=== PATIENT | male | born 1940 ===

== ENCOUNTER 2021-05-17 16:08 | Inpatient (IN) | payer MEDICARE ==
[2021-05-17] MEDS ORDERED: LORazepam 1 MG TAB PO PRN (22:11)
[2021-05-18] MEDS ORDERED: [UNRECOGNIZED DRUG - OTHER] PO PRN (10:25)
[2021-05-18] MEDS ORDERED: BUTALB PO PRN (10:25)
[2021-05-18] MEDS ORDERED: ACETAMINOPHEN PO PRN (10:25)
[2021-05-18] MEDS ORDERED: CAFFEINE PO PRN (10:25)
--- NOTE | 2021-05-18 10:26 | Consultation ---
History of Present Illness - Reason for Consult Consult date: 05/18/21 Reason for consult: delusional - History of Present Psychiatric Illness Per Nurse Note: Patient has had increasing headaches and depression and threatened to kill himself by banging his head on the wall. Carrington Recinos was seen today, he is a/o x 3. He has a lot of somatic complaints. He says his right arm is numb and paralized. The patent is moving his arm about. He says his fingers are numb and he's having headaches. He says it all started after taking the wellbutrin. He says he's feeling depressed. He says he he thought about suicide but says he he could get better he would be fine. The patient denies any illicit drug use, alcohol or nicotine. PAST PSYCHIATRIC HISTORY: Diagnoses: Depression Suicide attempts or Self-harm behavior: Denies Prior psychiatric hospitalizations: yes Substance Abuse history: denies Previous psychiatric medications tried: wellbutin Outpatient treatment: yes PAST MEDICAL HISTORY: None reported or document Family Psychiatric History: None reported or documented SOCIAL HISTORY Marital Status: Living Arrangements: with son Employment Status: retired Access to guns/weapons: denies Education: History of Abuse: denies Legal History: denies REVIEW OF SYSTEMS Constitutional: Negative for weight loss ENT: Negative for stridor Respiratory: Negative for cough or hemoptysis All other systems reviewed and are negative MENTAL STATUS EXAMINATION General Appearance and Behavior: Age appropriate, good hygiene, wearing appropriate clothes, calm and cooperative polite with questioning. Cooperation: engaged Psychomotor Behavior: Psychomotor normal Mood: depressed Affect and affective range: congruent with stated mood Thought Process: goal directed Thought Content: depression, SI Speech: Normal volume, Regular rate and rhythm, Suicidal Ideation: yes Homicidal Ideation: Denies Hallucinations: Denies Delusions: None elicited Impulse Control: Unimpaired Insight and Judgment: Limited Memory: Limited Attention: attentive Orientation: a/o Assessment and Plan (1)Major Depressive Disorder Treatment Plan Patient admitted for inpatient psychiatric evaluation, medication adjustment and close monitoring The patient's behavior, mood, sleep and appetite will be closely monitored. Patient enrolled in individual and group therapeutic sessions and encouraged to attend. Patient provided with a safe and structured environment. Patient's physical health needs will be addressed by the Hospitalist. Hospitalist Consulted Labs including CBC, CMP, Lipid profile and Hemoglobin A1C levels ordered for baseline reference Social Assessment will be completed and the Weaving Supervisor will work with patient and family to ensure a suitable and safe disposition Medication adjustment will be made as clinically indicated Effexor 37.5mg po daily Abilify 5mg po daily Usual Wellness Denominational/Preservation: - Start Trazodone 50 mg po QHS & 50 mg po QHS PRN between 10 PM & 2 AM for insomnia - Start Melatonin 5 mg po QHS to promote circadian rhythm The patient agreed on the treatment plan, understood the risk, benefit, alternative treatment, potential consequence of no treatment, and gave informed consent. Estimated days: 6 Post hospital care: primary care provider, psychiatric provider Case staffed with Dr. Dalton Medications and Allergies Allergies Allergy/AdvReac Type Severity Reaction Status Date / Time No Known Allergies Allergy Verified 05/18/21 01:51 Home Medications Medication Instructions Recorded Confirmed Last Taken Type Butalb/Acetaminophen/Caffeine 1 cap PO Q6HR PRN 05/18/21 05/18/21 Unknown History [Fioricet 50-300-40 mg CAP] Finasteride [Proscar] 5 mg PO DAILY 05/18/21 05/18/21 Unknown History LORazepam [Ativan] 1 mg PO DAILY PRN 05/18/21 05/18/21 Unknown History buPROPion [Wellbutrin] 75 mg PO DAILY 05/18/21 05/18/21 Unknown History Active Meds: Active Medications Lorazepam (Lorazepam 1 Mg Tab) 1 mg PO Q4H PRN PRN Reason: Agitation Melatonin (Melatonin 5 Mg Tab) 5 mg PO QHS PRN PRN Reason: Sleep Mental Status Exam - Vital signs Last Vital Signs Temp 98.1 F 05/18/21 07:48 Pulse 81 05/18/21 07:48 Resp 16 05/18/21 07:48 BP 126/72 05/18/21 07:48 Pulse Ox 98 05/18/21 07:48 Results All other labs normal.
[2021-05-18] MEDS: VENLAFAXINE 37.5 MG TAB PO SCH ×2 (12:33→21:17)
[2021-05-18] MEDS: FINASTERIDE 5 MG TAB PO SCH (12:33)
[2021-05-18] MEDS: BUTALB/ACETAMINOPHEN/CAFFEINE TAB PO PRN (12:34)
[2021-05-18] MEDS: ARIPiprazole 5 MG TAB PO SCH (12:34)
[2021-05-18 12:46] LABS: Basophils # (Auto) 0.1 K/mm3 (0.0-0.1); Basophils % (Auto) 0.6 % (0.0-1.8); Eosinophils # (Auto) 0.1 K/mm3 (0.0-0.4); Eosinophils % (Auto) 0.8 % (0.0-4.3); Hematocrit 42.3 % (35.5-45.6); Hemoglobin 15.1 gm/dl (11.8-15.2); Lymphocytes # (Auto) 0.8 K/mm3 (1.2-5.4); Lymphocytes % (Auto) 9.2 % (13.4-35.0); Mean Corpuscular HGB Conc 36 % (32-34); Mean Corpuscular Volume 99 fl (84-94); Monocytes # (Auto) 0.9 K/mm3 (0.0-0.8); Platelet Count 277 K/mm3 (140-440); Red Blood Count 4.26 M/mm3 (3.65-5.03); Red Cell Distribution Width 14.3 % (13.2-15.2)
[2021-05-18 13:13] LABS: Albumin 4.4 g/dL (3.9-5); Calcium 9.9 mg/dL (8.4-10.2); Chol/HDL Ratio 2.58 %
--- NOTE | 2021-05-18 20:15 | Consultation ---
History of Present Illness - Reason for Consult Consult date: 05/18/21 Medical Management Requesting physician: OK CASTILLO - History of Present Illness 80 YO Male with Vascular Dementia With Behavioral Disturbance, Cerebral Atherosclerosis, MDD admitted to [facility] for Psychiatric stabilization. Pt seen and Past History Past Medical History: other (see HPI() Medications and Allergies Allergies Allergy/AdvReac Type Severity Reaction Status Date / Time No Known Allergies Allergy Verified 05/18/21 01:51 Home Medications Medication Instructions Recorded Confirmed Last Taken Type Butalb/Acetaminophen/Caffeine 1 cap PO Q6HR PRN 05/18/21 05/18/21 Unknown History [Fioricet 50-300-40 mg CAP] Finasteride [Proscar] 5 mg PO DAILY 05/18/21 05/18/21 Unknown History LORazepam [Ativan] 1 mg PO DAILY PRN 05/18/21 05/18/21 Unknown History buPROPion [Wellbutrin] 75 mg PO DAILY 05/18/21 05/18/21 Unknown History Active Meds: Active Medications Acetaminophen/Butalbital/Caffeine (Butalb/Acetaminophen/Caffeine Tab) 1 tab PO Q6H PRN PRN Reason: Headache Last Admin: 05/18/21 12:34 Dose: 1 tab Documented by: Aripiprazole (Aripiprazole 5 Mg Tab) 5 mg PO QDAY [facility] Last Admin: 05/18/21 12:34 Dose: 5 mg Documented by: Finasteride (Finasteride 5 Mg Tab) 5 mg PO DAILY [facility] Last Admin: 05/18/21 12:33 Dose: 5 mg Documented by: Lorazepam (Lorazepam 1 Mg Tab) 1 mg PO Q4H PRN PRN Reason: Agitation Lorazepam (Lorazepam 1 Mg Tab) 1 mg PO DAILY PRN PRN Reason: Anxiety Melatonin (Melatonin 5 Mg Tab) 5 mg PO QHS PRN PRN Reason: Sleep Venlafaxine HCl (Venlafaxine 37.5 Mg Tab) 37.5 mg PO BID [facility] Last Admin: 05/18/21 12:33 Dose: 37.5 mg Documented by: Exam - Constitutional Vitals: Temp Pulse Resp BP Pulse Ox 98.6 F 66 20 133/67 96 05/18/21 19:22 05/18/21 19:22 05/18/21 19:22 05/18/21 19:22 05/18/21 19:22 General appearance: Present: cachectic - EENT Eyes: Present: PERRL ENT: hearing intact, clear oral mucosa - Neck Neck: Present: supple, normal ROM - Respiratory Respiratory effort: normal Respiratory: bilateral: CTA - Cardiovascular Heart Sounds: Present: S1 & S2. Absent: rub, click - Extremities Extremities: pulses symmetrical, No edema Peripheral Pulses: within normal limits - Abdominal General gastrointestinal: Present: soft, non-tender, non-distended, normal bowel sounds Male genitourinary: Present: normal - Integumentary Integumentary: Present: clear, warm, dry - Musculoskeletal Musculoskeletal: gait normal, strength equal bilaterally - Psychiatric Psychiatric: appropriate mood/affect, intact judgment & insight - Neurologic Neurologic: CNII-XII intact, moves all extremities Results - Labs CBC & Chem 7: 05/18/21 12:31 05/18/21 12:31 Labs: Abnormal lab results 05/18/21 05/18/21 Range/Units 12:31 12:31 MCV 99 H (84-94) fl MCH 35 H (28-32) pg MCHC 36 H (32-34) % Lymph % (Auto) 9.2 L (13.4-35.0) % [place] % (Auto) 10.0 H (0.0-7.3) % Lymph # (Auto) 0.8 L (1.2-5.4) K/mm3 [place] # (Auto) 0.9 H (0.0-0.8) K/mm3 Seg Neutrophils % 79.4 H (40.0-70.0) % Sodium 135 L (137-145) mmol/L BUN 21 H (9-20) mg/dL Assessment and Plan - Patient Problems (1) Vascular dementia with behavioral disturbance Current Visit: Yes Status: Acute (2) Cerebral atherosclerosis Current Visit: Yes Status: Acute (3) Depression Current Visit: Yes Status: Acute
[2021-05-19] MEDS: VENLAFAXINE 37.5 MG TAB PO SCH ×2 (10:07→21:21)
[2021-05-19] MEDS: FINASTERIDE 5 MG TAB PO SCH (10:07)
[2021-05-19] MEDS: ARIPiprazole 5 MG TAB PO SCH (10:07)
[2021-05-19] MEDS: BUTALB/ACETAMINOPHEN/CAFFEINE TAB PO PRN (10:08)
--- NOTE | 2021-05-19 10:33 | Progress Note ---
Subjective Date of service: 05/19/21 Principal diagnosis: MDD Subjective Comment: The patient was seen today, he has a lot of somatic complaints, some appear to be delusions. He says his arm is paralyzed and he can't move it. But the patient is moving his arm about. He says his arm is numb and tingling. He says he's dizzy, has a headache and hallucinating. When I ask the patient what where the hallucinations, he says "I'm seeing everything." He also endorses suicidal thoughts "at times." The patient says he is sensitive to medications and started having all of these symptoms after being placed on the wellbutrin. I informed the patient that he was no longer on the wellbutrin. REVIEW OF SYSTEMS Constitutional: Negative for weight loss ENT: Negative for stridor Respiratory: Negative for cough or hemoptysis All other systems reviewed and are negative MENTAL STATUS EXAMINATION General Appearance and Behavior: Age appropriate, good hygiene, wearing appropriate clothes, calm and cooperative polite with questioning. Cooperation: engaged Psychomotor Behavior: Psychomotor normal Mood: depressed Affect and affective range: congruent with stated mood Thought Process: goal directed Thought Content: depression, SI Speech: Normal volume, Regular rate and rhythm, Suicidal Ideation: yes Homicidal Ideation: Denies Hallucinations: Denies Delusions: None elicited Impulse Control: Unimpaired Insight and Judgment: Limited Memory: Limited Attention: attentive Orientation: a/o Assessment and Plan (1)Major Depressive Disorder Treatment Plan Patient admitted for inpatient psychiatric evaluation, medication adjustment and close monitoring The patient's behavior, mood, sleep and appetite will be closely monitored. Patient enrolled in individual and group therapeutic sessions and encouraged to attend. Patient provided with a safe and structured environment. Patient's physical health needs will be addressed by the Hospitalist. Hospitalist Consulted Labs including CBC, CMP, Lipid profile and Hemoglobin A1C levels ordered for baseline reference Social Assessment will be completed and the Printed Circuit Board Layout Designer will work with patient and family to ensure a suitable and safe disposition Medication adjustment will be made as clinically indicated Continue Effexor 37.5mg po daily Continue Abilify 5mg po daily Usual Wellness Tenriism/Preservation: - Start Trazodone 50 mg po QHS & 50 mg po QHS PRN between 10 PM & 2 AM for insomnia - Start Melatonin 5 mg po QHS to promote circadian rhythm The patient agreed on the treatment plan, understood the risk, benefit, alternative treatment, potential consequence of no treatment, and gave informed consent. Estimated days: 3 Post hospital care: primary care provider, psychiatric provider Case staffed with Dr. Dalton Medications and Allergies Allergies Allergy/AdvReac Type Severity Reaction Status Date / Time No Known Allergies Allergy Verified 05/18/21 01:51 Home Medications Medication Instructions Recorded Confirmed Last Taken Type Butalb/Acetaminophen/Caffeine 1 cap PO Q6HR PRN 05/18/21 05/18/21 Unknown History [Fioricet 50-300-40 mg CAP] Finasteride [Proscar] 5 mg PO DAILY 05/18/21 05/18/21 Unknown History LORazepam [Ativan] 1 mg PO DAILY PRN 05/18/21 05/18/21 Unknown History buPROPion [Wellbutrin] 75 mg PO DAILY 05/18/21 05/18/21 Unknown History Active Meds: Active Medications Acetaminophen/Butalbital/Caffeine (Butalb/Acetaminophen/Caffeine Tab) 1 tab PO Q6H PRN PRN Reason: Headache Last Admin: 05/19/21 10:08 Dose: 1 tab Documented by: Aripiprazole (Aripiprazole 5 Mg Tab) 5 mg PO QDAY [facility] Last Admin: 05/19/21 10:07 Dose: 5 mg Documented by: Finasteride (Finasteride 5 Mg Tab) 5 mg PO DAILY [facility] Last Admin: 05/19/21 10:07 Dose: 5 mg Documented by: Lorazepam (Lorazepam 1 Mg Tab) 1 mg PO DAILY PRN PRN Reason: Anxiety Melatonin (Melatonin 5 Mg Tab) 5 mg PO QHS PRN PRN Reason: Sleep Venlafaxine HCl (Venlafaxine 37.5 Mg Tab) 37.5 mg PO BID [facility] Last Admin: 05/19/21 10:07 Dose: 37.5 mg Documented by: Results - Results Labs/Vitals: Laboratory Last Values WBC 8.8 K/mm3 (4.5-11.0) 05/18/21 12:31 RBC 4.26 M/mm3 (3.65-5.03) 05/18/21 12:31 Hgb 15.1 gm/dl (11.8-15.2) 05/18/21 12:31 Hct 42.3 % (35.5-45.6) 05/18/21 12:31 MCV 99 fl (84-94) H 05/18/21 12:31 MCH 35 pg (28-32) H 05/18/21 12:31 MCHC 36 % (32-34) H 05/18/21 12:31 RDW 14.3 % (13.2-15.2) 05/18/21 12:31 Plt Count 277 K/mm3 (140-440) 05/18/21 12:31 Lymph % (Auto) 9.2 % (13.4-35.0) L 05/18/21 12:31 [place] % (Auto) 10.0 % (0.0-7.3) H 05/18/21 12:31 Eos % (Auto) 0.8 % (0.0-4.3) 05/18/21 12:31 Baso % (Auto) 0.6 % (0.0-1.8) 05/18/21 12:31 Lymph # (Auto) 0.8 K/mm3 (1.2-5.4) L 05/18/21 12:31 [place] # (Auto) 0.9 K/mm3 (0.0-0.8) H 05/18/21 12:31 Eos # (Auto) 0.1 K/mm3 (0.0-0.4) 05/18/21 12:31 Baso # (Auto) 0.1 K/mm3 (0.0-0.1) 05/18/21 12:31 Seg Neutrophils % 79.4 % (40.0-70.0) H 05/18/21 12:31 Seg Neutrophils # 7.0 K/mm3 (1.8-7.7) 05/18/21 12:31 Sodium 135 mmol/L (137-145) L 05/18/21 12:31 Potassium 4.1 mmol/L (3.6-5.0) 05/18/21 12:31 Chloride 99.6 mmol/L (98-107) 05/18/21 12:31 Carbon Dioxide 22 mmol/L (22-30) 05/18/21 12:31 Anion Gap 18 mmol/L 05/18/21 12:31 BUN 21 mg/dL (9-20) H 05/18/21 12:31 Creatinine 1.2 mg/dL (0.8-1.3) 05/18/21 12:31 Estimated GFR 59 ml/min 05/18/21 12:31 BUN/Creatinine Ratio 18 % 05/18/21 12:31 Glucose 80 mg/dL (75-100) 05/18/21 12:31 POC Glucose 95 mg/dL (70-105) 05/18/21 19:53 Hemoglobin A1c 5.4 % (4-6) 05/18/21 12:31 Calcium 9.9 mg/dL (8.4-10.2) 05/18/21 12:31 Total Bilirubin 0.60 mg/dL (0.1-1.2) 05/18/21 12:31 AST 22 units/L (5-40) 05/18/21 12:31 ALT 13 units/L (7-56) 05/18/21 12:31 Alkaline Phosphatase 56 units/L (35-129) 05/18/21 12:31 Total Protein 7.0 g/dL (6.3-8.2) 05/18/21 12:31 Albumin 4.4 g/dL (3.9-5) 05/18/21 12:31 Albumin/Globulin Ratio 1.7 % 05/18/21 12:31 Triglycerides 105 mg/dL (2-149) 05/18/21 12:31 Cholesterol 111 mg/dL (50-199) 05/18/21 12:31 LDL Cholesterol Direct 62 mg/dL (50-130) 05/18/21 12:31 HDL Cholesterol 43 mg/dL (40-59) 05/18/21 12:31 Cholesterol/HDL Ratio 2.58 % 05/18/21 12:31 TSH 1.000 mlU/mL (0.270-4.200) 05/18/21 12:31 Last Vital Signs Temp 97.6 F 05/19/21 07:31 Pulse 71 05/19/21 07:31 Resp 18 05/19/21 07:31 BP 141/66 05/19/21 07:31 Pulse Ox 97 05/19/21 07:31
[2021-05-19] MEDS: LORazepam 1 MG TAB PO PRN (11:51)
[2021-05-19] MEDS: MELATONIN 5 MG TAB PO PRN (20:06)
[2021-05-20] MEDS: BUTALB/ACETAMINOPHEN/CAFFEINE TAB PO PRN ×2 (09:34→15:01)
[2021-05-20] MEDS: ARIPiprazole 5 MG TAB PO SCH (09:34)
[2021-05-20] MEDS: FINASTERIDE 5 MG TAB PO SCH (09:34)
[2021-05-20] MEDS: VENLAFAXINE 37.5 MG TAB PO SCH ×2 (09:34→21:12)
--- NOTE | 2021-05-20 10:32 | Progress Note ---
Subjective Date of service: 05/20/21 Principal diagnosis: MDD Subjective Comment: The patient was seen today, he still has a lot of somatic complaints. He is delusional. He says his right arm is "cold as ice, numb, tingling, paralyzed and he can't move it." The patient's arm is warm to touch, and he has good movement in it. He also says his head is hurting and it is moving down to his right leg. He says "my whole right side is paralyzed." He denies SI/HI or hallucinations of any kind. He says "no, no I need an MRI on my body. Let them know." REVIEW OF SYSTEMS Constitutional: Negative for weight loss ENT: Negative for stridor Respiratory: Negative for cough or hemoptysis All other systems reviewed and are negative MENTAL STATUS EXAMINATION General Appearance and Behavior: Age appropriate, good hygiene, wearing appropriate clothes, calm and cooperative polite with questioning. Cooperation: engaged Psychomotor Behavior: Psychomotor normal Mood: depressed Affect and affective range: congruent with stated mood Thought Process: goal directed Thought Content: depression, SI Speech: Normal volume, Regular rate and rhythm, Suicidal Ideation: yes Homicidal Ideation: Denies Hallucinations: Denies Delusions: None elicited Impulse Control: Unimpaired Insight and Judgment: Limited Memory: Limited Attention: attentive Orientation: a/o Assessment and Plan (1)Major Depressive Disorder Treatment Plan Patient admitted for inpatient psychiatric evaluation, medication adjustment and close monitoring The patient's behavior, mood, sleep and appetite will be closely monitored. Patient enrolled in individual and group therapeutic sessions and encouraged to attend. Patient provided with a safe and structured environment. Patient's physical health needs will be addressed by the Hospitalist. Hospitalist Consulted Labs including CBC, CMP, Lipid profile and Hemoglobin A1C levels ordered for baseline reference Social Assessment will be completed and the Supervisor Wet Room will work with patient and family to ensure a suitable and safe disposition Medication adjustment will be made as clinically indicated Continue Effexor 37.5mg po daily Continue Abilify 5mg po daily Usual Wellness Mandaeism/Preservation: - Start Trazodone 50 mg po QHS & 50 mg po QHS PRN between 10 PM & 2 AM for insomnia - Start Melatonin 5 mg po QHS to promote circadian rhythm The patient agreed on the treatment plan, understood the risk, benefit, alternative treatment, potential consequence of no treatment, and gave informed consent. Estimated days: 3 Post hospital care: primary care provider, psychiatric provider Case staffed with Dr. Dalton Medications and Allergies Allergies Allergy/AdvReac Type Severity Reaction Status Date / Time No Known Allergies Allergy Verified 05/18/21 01:51 Home Medications Medication Instructions Recorded Confirmed Last Taken Type Butalb/Acetaminophen/Caffeine 1 cap PO Q6HR PRN 05/18/21 05/18/21 Unknown History [Fioricet 50-300-40 mg CAP] Finasteride [Proscar] 5 mg PO DAILY 05/18/21 05/18/21 Unknown History LORazepam [Ativan] 1 mg PO DAILY PRN 05/18/21 05/18/21 Unknown History buPROPion [Wellbutrin] 75 mg PO DAILY 05/18/21 05/18/21 Unknown History Active Meds: Active Medications Acetaminophen/Butalbital/Caffeine (Butalb/Acetaminophen/Caffeine Tab) 1 tab PO Q6H PRN PRN Reason: Headache Last Admin: 05/20/21 09:34 Dose: 1 tab Documented by: Aripiprazole (Aripiprazole 5 Mg Tab) 5 mg PO QDAY [facility] Last Admin: 05/20/21 09:34 Dose: 5 mg Documented by: Finasteride (Finasteride 5 Mg Tab) 5 mg PO DAILY [facility] Last Admin: 05/20/21 09:34 Dose: 5 mg Documented by: Lorazepam (Lorazepam 1 Mg Tab) 1 mg PO DAILY PRN PRN Reason: Anxiety Last Admin: 05/19/21 11:51 Dose: 1 mg Documented by: Melatonin (Melatonin 5 Mg Tab) 5 mg PO QHS PRN PRN Reason: Sleep Venlafaxine HCl (Venlafaxine 37.5 Mg Tab) 37.5 mg PO BID [facility] Last Admin: 05/20/21 09:34 Dose: 37.5 mg Documented by: Results - Results Labs/Vitals: Laboratory Last Values WBC 8.8 K/mm3 (4.5-11.0) 05/18/21 12:31 RBC 4.26 M/mm3 (3.65-5.03) 05/18/21 12:31 Hgb 15.1 gm/dl (11.8-15.2) 05/18/21 12:31 Hct 42.3 % (35.5-45.6) 05/18/21 12:31 MCV 99 fl (84-94) H 05/18/21 12:31 MCH 35 pg (28-32) H 05/18/21 12:31 MCHC 36 % (32-34) H 05/18/21 12:31 RDW 14.3 % (13.2-15.2) 05/18/21 12:31 Plt Count 277 K/mm3 (140-440) 05/18/21 12:31 Lymph % (Auto) 9.2 % (13.4-35.0) L 05/18/21 12:31 [place] % (Auto) 10.0 % (0.0-7.3) H 05/18/21 12:31 Eos % (Auto) 0.8 % (0.0-4.3) 05/18/21 12:31 Baso % (Auto) 0.6 % (0.0-1.8) 05/18/21 12:31 Lymph # (Auto) 0.8 K/mm3 (1.2-5.4) L 05/18/21 12:31 [place] # (Auto) 0.9 K/mm3 (0.0-0.8) H 05/18/21 12:31 Eos # (Auto) 0.1 K/mm3 (0.0-0.4) 05/18/21 12:31 Baso # (Auto) 0.1 K/mm3 (0.0-0.1) 05/18/21 12:31 Seg Neutrophils % 79.4 % (40.0-70.0) H 05/18/21 12:31 Seg Neutrophils # 7.0 K/mm3 (1.8-7.7) 05/18/21 12:31 Sodium 135 mmol/L (137-145) L 05/18/21 12:31 Potassium 4.1 mmol/L (3.6-5.0) 05/18/21 12:31 Chloride 99.6 mmol/L (98-107) 05/18/21 12:31 Carbon Dioxide 22 mmol/L (22-30) 05/18/21 12:31 Anion Gap 18 mmol/L 05/18/21 12:31 BUN 21 mg/dL (9-20) H 05/18/21 12:31 Creatinine 1.2 mg/dL (0.8-1.3) 05/18/21 12:31 Estimated GFR 59 ml/min 05/18/21 12:31 BUN/Creatinine Ratio 18 % 05/18/21 12:31 Glucose 80 mg/dL (75-100) 05/18/21 12:31 POC Glucose 95 mg/dL (70-105) 05/18/21 19:53 Hemoglobin A1c 5.4 % (4-6) 05/18/21 12:31 Calcium 9.9 mg/dL (8.4-10.2) 05/18/21 12:31 Total Bilirubin 0.60 mg/dL (0.1-1.2) 05/18/21 12:31 AST 22 units/L (5-40) 05/18/21 12:31 ALT 13 units/L (7-56) 05/18/21 12:31 Alkaline Phosphatase 56 units/L (35-129) 05/18/21 12:31 Total Protein 7.0 g/dL (6.3-8.2) 05/18/21 12:31 Albumin 4.4 g/dL (3.9-5) 05/18/21 12:31 Albumin/Globulin Ratio 1.7 % 05/18/21 12:31 Triglycerides 105 mg/dL (2-149) 05/18/21 12:31 Cholesterol 111 mg/dL (50-199) 05/18/21 12:31 LDL Cholesterol Direct 62 mg/dL (50-130) 05/18/21 12:31 HDL Cholesterol 43 mg/dL (40-59) 05/18/21 12:31 Cholesterol/HDL Ratio 2.58 % 05/18/21 12:31 TSH 1.000 mlU/mL (0.270-4.200) 05/18/21 12:31 Last Vital Signs Temp 98.4 F 05/19/21 19:42 Pulse 68 05/19/21 19:42 Resp 18 05/19/21 19:42 BP 144/74 05/19/21 19:42 Pulse Ox 98 05/19/21 19:42
[2021-05-21] MEDS: ARIPiprazole 5 MG TAB PO SCH (09:25)
[2021-05-21] MEDS: FINASTERIDE 5 MG TAB PO SCH (09:26)
[2021-05-21] MEDS: VENLAFAXINE 37.5 MG TAB PO SCH ×2 (09:26→21:30)
--- NOTE | 2021-05-21 09:39 | Progress Note ---
Subjective Date of service: 05/21/21 Principal diagnosis: MDD Subjective Comment: The patient was seen eating breakfast but states he is not doing well. He reports numbness to his right arm and head aches: vital signs was checked and it is within normal limit. He reports getting about three hours of sleep last night. He denies any current suicidal/homicidal and denies hallucinations. Per nurse " Last evening the patient spent in the activity room with peers. He has little interaction with others. He is focused on somatic issues. He denies si/hi/ah/vh. His appetite is good and he is medication compliant. Overnight the patient rested quietly. He slept 8 hours. Will continue to monitor patient for safety." No changes made today. REVIEW OF SYSTEMS Constitutional: Negative for weight loss ENT: Negative for stridor Respiratory: Negative for cough or hemoptysis All other systems reviewed and are negative MENTAL STATUS EXAMINATION General Appearance and Behavior: Age appropriate, good hygiene, wearing appropriate clothes, calm and cooperative polite with questioning. Cooperation: engaged Psychomotor Behavior: Psychomotor normal Mood: depressed Affect and affective range: congruent with stated mood Thought Process: goal directed Thought Content: depression, SI Speech: Normal volume, Regular rate and rhythm, Suicidal Ideation: yes Homicidal Ideation: Denies Hallucinations: Denies Delusions: None elicited Impulse Control: Unimpaired Insight and Judgment: Limited Memory: Limited Attention: attentive Orientation: a/o Assessment and Plan (1)Major Depressive Disorder Treatment Plan Patient admitted for inpatient psychiatric evaluation, medication adjustment and close monitoring The patient's behavior, mood, sleep and appetite will be closely monitored. Patient enrolled in individual and group therapeutic sessions and encouraged to attend. Patient provided with a safe and structured environment. Patient's physical health needs will be addressed by the Hospitalist. Hospitalist Consulted Labs including CBC, CMP, Lipid profile and Hemoglobin A1C levels ordered for baseline reference Social Assessment will be completed and the Merchandising Director will work with patient and family to ensure a suitable and safe disposition Medication adjustment will be made as clinically indicated Continue Effexor 37.5mg po daily Continue Abilify 5mg po daily Usual Wellness Anabaptism/Preservation: - Start Trazodone 50 mg po QHS & 50 mg po QHS PRN between 10 PM & 2 AM for insomnia - Start Melatonin 5 mg po QHS to promote circadian rhythm The patient agreed on the treatment plan, understood the risk, benefit, alternative treatment, potential consequence of no treatment, and gave informed consent. Estimated days: 3 Post hospital care: primary care provider, psychiatric provider Case staffed with Dr. Dalton Medications and Allergies Allergies Allergy/AdvReac Type Severity Reaction Status Date / Time No Known Allergies Allergy Verified 05/18/21 01:51 Medications and Allergies Allergies Allergy/AdvReac Type Severity Reaction Status Date / Time No Known Allergies Allergy Verified 05/18/21 01:51 Home Medications Medication Instructions Recorded Confirmed Last Taken Type Butalb/Acetaminophen/Caffeine 1 cap PO Q6HR PRN 05/18/21 05/18/21 Unknown History [Fioricet 50-300-40 mg CAP] Finasteride [Proscar] 5 mg PO DAILY 05/18/21 05/18/21 Unknown History LORazepam [Ativan] 1 mg PO DAILY PRN 05/18/21 05/18/21 Unknown History buPROPion [Wellbutrin] 75 mg PO DAILY 05/18/21 05/18/21 Unknown History Active Meds: Active Medications Acetaminophen/Butalbital/Caffeine (Butalb/Acetaminophen/Caffeine Tab) 1 tab PO Q6H PRN PRN Reason: Headache Last Admin: 05/20/21 15:01 Dose: 1 tab Documented by: Aripiprazole (Aripiprazole 5 Mg Tab) 5 mg PO QDAY [facility] Last Admin: 05/21/21 09:25 Dose: 5 mg Documented by: Finasteride (Finasteride 5 Mg Tab) 5 mg PO DAILY [facility] Last Admin: 05/21/21 09:26 Dose: 5 mg Documented by: Lorazepam (Lorazepam 1 Mg Tab) 1 mg PO DAILY PRN PRN Reason: Anxiety Last Admin: 05/19/21 11:51 Dose: 1 mg Documented by: Melatonin (Melatonin 5 Mg Tab) 5 mg PO QHS PRN PRN Reason: Sleep Venlafaxine HCl (Venlafaxine 37.5 Mg Tab) 37.5 mg PO BID [facility] Last Admin: 05/21/21 09:26 Dose: 37.5 mg Documented by: Results - Results Labs/Vitals: Laboratory Last Values WBC 8.8 K/mm3 (4.5-11.0) 05/18/21 12:31 RBC 4.26 M/mm3 (3.65-5.03) 05/18/21 12:31 Hgb 15.1 gm/dl (11.8-15.2) 05/18/21 12:31 Hct 42.3 % (35.5-45.6) 05/18/21 12:31 MCV 99 fl (84-94) H 05/18/21 12:31 MCH 35 pg (28-32) H 05/18/21 12:31 MCHC 36 % (32-34) H 05/18/21 12:31 RDW 14.3 % (13.2-15.2) 05/18/21 12:31 Plt Count 277 K/mm3 (140-440) 05/18/21 12:31 Lymph % (Auto) 9.2 % (13.4-35.0) L 05/18/21 12:31 [place] % (Auto) 10.0 % (0.0-7.3) H 05/18/21 12:31 Eos % (Auto) 0.8 % (0.0-4.3) 05/18/21 12:31 Baso % (Auto) 0.6 % (0.0-1.8) 05/18/21 12:31 Lymph # (Auto) 0.8 K/mm3 (1.2-5.4) L 05/18/21 12:31 [place] # (Auto) 0.9 K/mm3 (0.0-0.8) H 05/18/21 12:31 Eos # (Auto) 0.1 K/mm3 (0.0-0.4) 05/18/21 12:31 Baso # (Auto) 0.1 K/mm3 (0.0-0.1) 05/18/21 12:31 Seg Neutrophils % 79.4 % (40.0-70.0) H 05/18/21 12:31 Seg Neutrophils # 7.0 K/mm3 (1.8-7.7) 05/18/21 12:31 Sodium 135 mmol/L (137-145) L 05/18/21 12:31 Potassium 4.1 mmol/L (3.6-5.0) 05/18/21 12:31 Chloride 99.6 mmol/L (98-107) 05/18/21 12:31 Carbon Dioxide 22 mmol/L (22-30) 05/18/21 12:31 Anion Gap 18 mmol/L 05/18/21 12:31 BUN 21 mg/dL (9-20) H 05/18/21 12:31 Creatinine 1.2 mg/dL (0.8-1.3) 05/18/21 12:31 Estimated GFR 59 ml/min 05/18/21 12:31 BUN/Creatinine Ratio 18 % 05/18/21 12:31 Glucose 80 mg/dL (75-100) 05/18/21 12:31 POC Glucose 95 mg/dL (70-105) 05/18/21 19:53 Hemoglobin A1c 5.4 % (4-6) 05/18/21 12:31 Calcium 9.9 mg/dL (8.4-10.2) 05/18/21 12:31 Total Bilirubin 0.60 mg/dL (0.1-1.2) 05/18/21 12:31 AST 22 units/L (5-40) 05/18/21 12:31 ALT 13 units/L (7-56) 05/18/21 12:31 Alkaline Phosphatase 56 units/L (35-129) 05/18/21 12:31 Total Protein 7.0 g/dL (6.3-8.2) 05/18/21 12:31 Albumin 4.4 g/dL (3.9-5) 05/18/21 12:31 Albumin/Globulin Ratio 1.7 % 05/18/21 12:31 Triglycerides 105 mg/dL (2-149) 05/18/21 12:31 Cholesterol 111 mg/dL (50-199) 05/18/21 12:31 LDL Cholesterol Direct 62 mg/dL (50-130) 05/18/21 12:31 HDL Cholesterol 43 mg/dL (40-59) 05/18/21 12:31 Cholesterol/HDL Ratio 2.58 % 05/18/21 12:31 TSH 1.000 mlU/mL (0.270-4.200) 05/18/21 12:31 Last Vital Signs Temp 98.9 F 05/21/21 08:54 Pulse 88 05/21/21 08:54 Resp 19 05/21/21 08:54 BP 126/75 05/21/21 08:54 Pulse Ox 98 05/21/21 08:54
[2021-05-21] MEDS: LORazepam 1 MG TAB PO PRN (09:54)
[2021-05-21] MEDS: MELATONIN 5 MG TAB PO PRN (20:12)
--- NOTE | 2021-05-22 08:52 | Progress Note ---
Subjective Date of service: 05/22/21 Principal diagnosis: MDD Subjective Comment: 05/21/2021: The patient was seen eating breakfast but states he is not doing well. He reports numbness to his right arm and head aches: vital signs was checked and it is within normal limit. He reports getting about three hours of sleep last night. He denies any current suicidal/homicidal and denies hallucinations. Per nurse " Last evening the patient spent in the activity room with peers. He has little interaction with others. He is focused on somatic issues. He denies si/hi/ah/vh. His appetite is good and he is medication compliant. Overnight the patient rested quietly. He slept 8 hours. Will continue to monitor patient for safety." No changes made today. 05/22/2021: The patient was seen in the activity room awaiting breakfast. He continues to have somatic complains. He reports sleep as poor and appetite as good. The patient denies any current suicidal/ homicidal ideation and denies hallucinations. Per nurse "overnight the pt rested quietly, presents as sleeping for approximately 9hrs, no distress noted, will continue to monitor for safety. " No changes made today. REVIEW OF SYSTEMS Constitutional: Negative for weight loss ENT: Negative for stridor Respiratory: Negative for cough or hemoptysis All other systems reviewed and are negative MENTAL STATUS EXAMINATION General Appearance and Behavior: Age appropriate, good hygiene, wearing appropriate clothes, calm and cooperative polite with questioning. Cooperation: engaged Psychomotor Behavior: Psychomotor normal Mood: depressed Affect and affective range: congruent with stated mood Thought Process: goal directed Thought Content: depression, SI Speech: Normal volume, Regular rate and rhythm, Suicidal Ideation: yes Homicidal Ideation: Denies Hallucinations: Denies Delusions: None elicited Impulse Control: Unimpaired Insight and Judgment: Limited Memory: Limited Attention: attentive Orientation: a/o Assessment and Plan (1)Major Depressive Disorder Treatment Plan Patient admitted for inpatient psychiatric evaluation, medication adjustment and close monitoring The patient's behavior, mood, sleep and appetite will be closely monitored. Patient enrolled in individual and group therapeutic sessions and encouraged to attend. Patient provided with a safe and structured environment. Patient's physical health needs will be addressed by the Hospitalist. Hospitalist Consulted Labs including CBC, CMP, Lipid profile and Hemoglobin A1C levels ordered for baseline reference Social Assessment will be completed and the Sandwich Maker will work with patient and family to ensure a suitable and safe disposition Medication adjustment will be made as clinically indicated Continue Effexor 37.5mg po daily Continue Abilify 5mg po daily No changes made today Usual Wellness Jain/Preservation: - Start Trazodone 50 mg po QHS & 50 mg po QHS PRN between 10 PM & 2 AM for insomnia - Start Melatonin 5 mg po QHS to promote circadian rhythm The patient agreed on the treatment plan, understood the risk, benefit, alternative treatment, potential consequence of no treatment, and gave informed consent. Estimated days: 3 Post hospital care: primary care provider, psychiatric provider Case staffed with Dr. Dalton Medications and Allergies Allergies Allergy/AdvReac Type Severity Reaction Status Date / Time No Known Allergies Allergy Verified 05/18/21 01:51 Home Medications Medication Instructions Recorded Confirmed Last Taken Type Butalb/Acetaminophen/Caffeine 1 cap PO Q6HR PRN 05/18/21 05/18/21 Unknown His tory [Fioricet 50-300-40 mg CAP] Finasteride [Proscar] 5 mg PO DAILY 05/18/21 05/18/21 Unknown History LORazepam [Ativan] 1 mg PO DAILY PRN 05/18/21 05/18/21 Unknown History buPROPion [Wellbutrin] 75 mg PO DAILY 05/18/21 05/18/21 Unknown History Active Meds: Active Medications Acetaminophen/Butalbital/Caffeine (Butalb/Acetaminophen/Caffeine Tab) 1 tab PO Q6H PRN PRN Reason: Headache Last Admin: 05/20/21 15:01 Dose: 1 tab Documented by: Aripiprazole (Aripiprazole 5 Mg Tab) 5 mg PO QDAY [facility] Last Admin: 05/21/21 09:25 Dose: 5 mg Documented by: Finasteride (Finasteride 5 Mg Tab) 5 mg PO DAILY [facility] Last Admin: 05/21/21 09:26 Dose: 5 mg Documented by: Lorazepam (Lorazepam 1 Mg Tab) 1 mg PO DAILY PRN PRN Reason: Anxiety Last Admin: 05/21/21 09:54 Dose: 1 mg Documented by: Melatonin (Melatonin 5 Mg Tab) 5 mg PO QHS PRN PRN Reason: Sleep Last Admin: 05/21/21 20:12 Dose: 5 mg Documented by: Venlafaxine HCl (Venlafaxine 37.5 Mg Tab) 37.5 mg PO BID [facility] Last Admin: 05/21/21 21:30 Dose: 37.5 mg Documented by: Results - Results Labs/Vitals: Laboratory Last Values WBC 8.8 K/mm3 (4.5-11.0) 05/18/21 12:31 RBC 4.26 M/mm3 (3.65-5.03) 05/18/21 12:31 Hgb 15.1 gm/dl (11.8-15.2) 05/18/21 12:31 Hct 42.3 % (35.5-45.6) 05/18/21 12:31 MCV 99 fl (84-94) H 05/18/21 12:31 MCH 35 pg (28-32) H 05/18/21 12:31 MCHC 36 % (32-34) H 05/18/21 12:31 RDW 14.3 % (13.2-15.2) 05/18/21 12:31 Plt Count 277 K/mm3 (140-440) 05/18/21 12:31 Lymph % (Auto) 9.2 % (13.4-35.0) L 05/18/21 12:31 [place] % (Auto) 10.0 % (0.0-7.3) H 05/18/21 12:31 Eos % (Auto) 0.8 % (0.0-4.3) 05/18/21 12:31 Baso % (Auto) 0.6 % (0.0-1.8) 05/18/21 12:31 Lymph # (Auto) 0.8 K/mm3 (1.2-5.4) L 05/18/21 12:31 [place] # (Auto) 0.9 K/mm3 (0.0-0.8) H 05/18/21 12:31 Eos # (Auto) 0.1 K/mm3 (0.0-0.4) 05/18/21 12:31 Baso # (Auto) 0.1 K/mm3 (0.0-0.1) 05/18/21 12:31 Seg Neutrophils % 79.4 % (40.0-70.0) H 05/18/21 12:31 Seg Neutrophils # 7.0 K/mm3 (1.8-7.7) 05/18/21 12:31 Sodium 135 mmol/L (137-145) L 05/18/21 12:31 Potassium 4.1 mmol/L (3.6-5.0) 05/18/21 12:31 Chloride 99.6 mmol/L (98-107) 05/18/21 12:31 Carbon Dioxide 22 mmol/L (22-30) 05/18/21 12:31 Anion Gap 18 mmol/L 05/18/21 12:31 BUN 21 mg/dL (9-20) H 05/18/21 12:31 Creatinine 1.2 mg/dL (0.8-1.3) 05/18/21 12:31 Estimated GFR 59 ml/min 05/18/21 12:31 BUN/Creatinine Ratio 18 % 05/18/21 12:31 Glucose 80 mg/dL (75-100) 05/18/21 12:31 POC Glucose 95 mg/dL (70-105) 05/18/21 19:53 Hemoglobin A1c 5.4 % (4-6) 05/18/21 12:31 Calcium 9.9 mg/dL (8.4-10.2) 05/18/21 12:31 Total Bilirubin 0.60 mg/dL (0.1-1.2) 05/18/21 12:31 AST 22 units/L (5-40) 05/18/21 12:31 ALT 13 units/L (7-56) 05/18/21 12:31 Alkaline Phosphatase 56 units/L (35-129) 05/18/21 12:31 Total Protein 7.0 g/dL (6.3-8.2) 05/18/21 12:31 Albumin 4.4 g/dL (3.9-5) 05/18/21 12:31 Albumin/Globulin Ratio 1.7 % 05/18/21 12:31 Triglycerides 105 mg/dL (2-149) 05/18/21 12:31 Cholesterol 111 mg/dL (50-199) 05/18/21 12:31 LDL Cholesterol Direct 62 mg/dL (50-130) 05/18/21 12:31 HDL Cholesterol 43 mg/dL (40-59) 05/18/21 12:31 Cholesterol/HDL Ratio 2.58 % 05/18/21 12:31 TSH 1.000 mlU/mL (0.270-4.200) 05/18/21 12:31 Last Vital Signs Temp 98.6 F 05/21/21 19:24 Pulse 71 05/21/21 19:24 Resp 20 05/21/21 19:24 BP 129/73 05/21/21 19:24 Pulse Ox 97 05/21/21 19:24
[2021-05-22] MEDS: VENLAFAXINE 37.5 MG TAB PO SCH ×2 (09:06→22:01)
[2021-05-22] MEDS: FINASTERIDE 5 MG TAB PO SCH (09:06)
[2021-05-22] MEDS: ARIPiprazole 5 MG TAB PO SCH (09:06)
[2021-05-22] MEDS: LORazepam 1 MG TAB PO PRN (21:56)
--- NOTE | 2021-05-23 08:46 | Progress Note ---
Subjective Date of service: 05/23/21 Principal diagnosis: MDD Subjective Comment: 05/21/2021: The patient was seen eating breakfast but states he is not doing well. He reports numbness to his right arm and head aches: vital signs was checked and it is within normal limit. He reports getting about three hours of sleep last night. He denies any current suicidal/homicidal and denies hallucinations. Per nurse " Last evening the patient spent in the activity room with peers. He has little interaction with others. He is focused on somatic issues. He denies si/hi/ah/vh. His appetite is good and he is medication compliant. Overnight the patient rested quietly. He slept 8 hours. Will continue to monitor patient for safety." No changes made today. 05/22/2021: The patient was seen in the activity room awaiting breakfast. He continues to have somatic complains. He reports sleep as poor and appetite as good. The patient denies any current suicidal/ homicidal ideation and denies hallucinations. Per nurse "overnight the pt rested quietly, presents as sleeping for approximately 9hrs, no distress noted, will continue to monitor for safety. " No changes made today. 05/23/2021: The patient reports feeling better, he his focused on discharge. He reports sleep and appetite as good. The patient denies any current suicidal/ homicidal ideation and denies hallucinations. No changes made today. REVIEW OF SYSTEMS Constitutional: Negative for weight loss ENT: Negative for stridor Respiratory: Negative for cough or hemoptysis All other systems reviewed and are negative MENTAL STATUS EXAMINATION General Appearance and Behavior: Age appropriate, good hygiene, wearing appropriate clothes, calm and cooperative polite with questioning. Cooperation: engaged Psychomotor Behavior: Psychomotor normal Mood: "ok" Affect and affective range: congruent with stated mood Thought Process: goal directed Thought Content: Not SI Speech: Normal volume, Regular rate and rhythm, Suicidal Ideation: Denies Homicidal Ideation: Denies Hallucinations: Denies Delusions: None elicited Impulse Control: Unimpaired Insight and Judgment: Limited Memory: Limited Attention: attentive Orientation: a/o Assessment and Plan (1)Major Depressive Disorder Treatment Plan Patient admitted for inpatient psychiatric evaluation, medication adjustment and close monitoring The patient's behavior, mood, sleep and appetite will be closely monitored. Patient enrolled in individual and group therapeutic sessions and encouraged to attend. Patient provided with a safe and structured environment. Patient's physical health needs will be addressed by the Hospitalist. Hospitalist Consulted Labs including CBC, CMP, Lipid profile and Hemoglobin A1C levels ordered for baseline reference Social Assessment will be completed and the Paper Steamer will work with patient and family to ensure a suitable and safe disposition Medication adjustment will be made as clinically indicated Continue Effexor 37.5mg po daily Continue Abilify 5mg po daily No changes made today Usual Wellness Amish/Preservation: - Start Trazodone 50 mg po QHS & 50 mg po QHS PRN between 10 PM & 2 AM for insomnia - Start Melatonin 5 mg po QHS to promote circadian rhythm The patient agreed on the treatment plan, understood the risk, benefit, alternative treatment, potential consequence of no treatment, and gave informed consent. Estimated days: 2 Post hospital care: primary care provider, psychiatric provider Case staffed with Dr. Dalton Medications and Allergie Medications and Allergies Allergies Allergy/AdvReac Type Severity Reaction Status Date / Time No Known Allergies Allergy Verified 05/18/21 01:51 Home Medications Medication Instructions Recorded Confirmed Last Taken Type Butalb/Acetaminophen/Caffeine 1 cap PO Q6HR PRN 05/18/21 05/18/21 Unknown History [Fioricet 50-300-40 mg CAP] Finasteride [Proscar] 5 mg PO DAILY 05/18/21 05/18/21 Unknown History LORazepam [Ativan] 1 mg PO DAILY PRN 05/18/21 05/18/21 Unknown History buPROPion [Wellbutrin] 75 mg PO DAILY 05/18/21 05/18/21 Unknown History Active Meds: Active Medications Acetaminophen/Butalbital/Caffeine (Butalb/Acetaminophen/Caffeine Tab) 1 tab PO Q6H PRN PRN Reason: Headache Last Admin: 05/20/21 15:01 Dose: 1 tab Documented by: Aripiprazole (Aripiprazole 5 Mg Tab) 5 mg PO QDAY [facility] Last Admin: 05/22/21 09:06 Dose: 5 mg Documented by: Finasteride (Finasteride 5 Mg Tab) 5 mg PO DAILY [facility] Last Admin: 05/22/21 09:06 Dose: 5 mg Documented by: Lorazepam (Lorazepam 1 Mg Tab) 1 mg PO DAILY PRN PRN Reason: Anxiety Last Admin: 05/22/21 21:56 Dose: 1 mg Documented by: Melatonin (Melatonin 5 Mg Tab) 5 mg PO QHS PRN PRN Reason: Sleep Last Admin: 05/21/21 20:12 Dose: 5 mg Documented by: Venlafaxine HCl (Venlafaxine 37.5 Mg Tab) 37.5 mg PO BID [facility] Last Admin: 05/22/21 22:01 Dose: 37.5 mg Documented by: Results - Results Labs/Vitals: Laboratory Last Values WBC 8.8 K/mm3 (4.5-11.0) 05/18/21 12:31 RBC 4.26 M/mm3 (3.65-5.03) 05/18/21 12:31 Hgb 15.1 gm/dl (11.8-15.2) 05/18/21 12:31 Hct 42.3 % (35.5-45.6) 05/18/21 12:31 MCV 99 fl (84-94) H 05/18/21 12:31 MCH 35 pg (28-32) H 05/18/21 12:31 MCHC 36 % (32-34) H 05/18/21 12:31 RDW 14.3 % (13.2-15.2) 05/18/21 12:31 Plt Count 277 K/mm3 (140-440) 05/18/21 12:31 Lymph % (Auto) 9.2 % (13.4-35.0) L 05/18/21 12:31 [place] % (Auto) 10.0 % (0.0-7.3) H 05/18/21 12:31 Eos % (Auto) 0.8 % (0.0-4.3) 05/18/21 12:31 Baso % (Auto) 0.6 % (0.0-1.8) 05/18/21 12:31 Lymph # (Auto) 0.8 K/mm3 (1.2-5.4) L 05/18/21 12:31 [place] # (Auto) 0.9 K/mm3 (0.0-0.8) H 05/18/21 12:31 Eos # (Auto) 0.1 K/mm3 (0.0-0.4) 05/18/21 12:31 Baso # (Auto) 0.1 K/mm3 (0.0-0.1) 05/18/21 12:31 Seg Neutrophils % 79.4 % (40.0-70.0) H 05/18/21 12:31 Seg Neutrophils # 7.0 K/mm3 (1.8-7.7) 05/18/21 12:31 Sodium 135 mmol/L (137-145) L 05/18/21 12:31 Potassium 4.1 mmol/L (3.6-5.0) 05/18/21 12:31 Chloride 99.6 mmol/L (98-107) 05/18/21 12:31 Carbon Dioxide 22 mmol/L (22-30) 05/18/21 12:31 Anion Gap 18 mmol/L 05/18/21 12:31 BUN 21 mg/dL (9-20) H 05/18/21 12:31 Creatinine 1.2 mg/dL (0.8-1.3) 05/18/21 12:31 Estimated GFR 59 ml/min 05/18/21 12:31 BUN/Creatinine Ratio 18 % 05/18/21 12:31 Glucose 80 mg/dL (75-100) 05/18/21 12:31 POC Glucose 95 mg/dL (70-105) 05/18/21 19:53 Hemoglobin A1c 5.4 % (4-6) 05/18/21 12:31 Calcium 9.9 mg/dL (8.4-10.2) 05/18/21 12:31 Total Bilirubin 0.60 mg/dL (0.1-1.2) 05/18/21 12:31 AST 22 units/L (5-40) 05/18/21 12:31 ALT 13 units/L (7-56) 05/18/21 12:31 Alkaline Phosphatase 56 units/L (35-129) 05/18/21 12:31 Total Protein 7.0 g/dL (6.3-8.2) 05/18/21 12:31 Albumin 4.4 g/dL (3.9-5) 05/18/21 12:31 Albumin/Globulin Ratio 1.7 % 05/18/21 12:31 Triglycerides 105 mg/dL (2-149) 05/18/21 12:31 Cholesterol 111 mg/dL (50-199) 05/18/21 12:31 LDL Cholesterol Direct 62 mg/dL (50-130) 05/18/21 12:31 HDL Cholesterol 43 mg/dL (40-59) 05/18/21 12:31 Cholesterol/HDL Ratio 2.58 % 05/18/21 12:31 TSH 1.000 mlU/mL (0.270-4.200) 05/18/21 12:31 Last Vital Signs Temp 98.4 F 05/23/21 07:33 Pulse 77 05/23/21 07:33 Resp 16 05/23/21 07:33 BP 143/80 05/23/21 07:33 Pulse Ox 98 05/23/21 07:33
--- NOTE | 2021-05-23 08:52 | Event Note ---
Date: 05/23/21 Called Tia Hirsch patient 's son at [phone] and undated him on the patient's treatment plan. No concerns at this time.
[2021-05-23] MEDS: VENLAFAXINE 37.5 MG TAB PO SCH ×2 (09:21→21:30)
[2021-05-23] MEDS: FINASTERIDE 5 MG TAB PO SCH (09:22)
[2021-05-23] MEDS: ARIPiprazole 5 MG TAB PO SCH (09:22)
[2021-05-23] MEDS: LORazepam 1 MG TAB PO PRN (21:30)
[2021-05-23] MEDS: BUTALB/ACETAMINOPHEN/CAFFEINE TAB PO PRN (21:32)
--- NOTE | 2021-05-24 08:07 | Discharge Summary ---
<TESS WESTON - Last Filed: 06/18/21 07:21> Providers - Providers Date of Admission: 05/17/21 23:00 Date of discharge: 05/24/21 Attending physician: OK CASTILLO MD 05/17/21 18:26 Consult to Physician [CONS] Routine Comment: Consulting Provider: TABITHA HIGHTOWER Physician Instructions: Reason For Exam: manage medical conditions 05/18/21 12:27 Physical Therapy Evaluation and Treat [CONS] Routine Comment: Reason For Exam: Unsteady gait 05/18/21 12:29 Occupational Therapy Evaluate and Treat [CONS] Routine Comment: Reason For Exam: Difficulty in swallow Primary care physician: WELDER/INSTALLER Hospitalization Reason for admission: Delusional Admitting Diagnosis: F33.9 - MAJOR DEPRESSIVE DISORDER, RECURRENT, UNSPECIFIED Condition: Stable Hospital course: The patient was provided inpatient psychiatric treatment with safe and suppo rtive environment, group/individual therapy, psychiatric medication, medication adjustment, adverse effect monitor, medical evaluation, medical treatment, social service assessment, social support meeting, placement assessment and psycho-education. The patients mood, cognition, behavior, motivation, compliance to treatment and appreciation on family/social support are improved and stabilized. At the time of discharge, the patient had no suicidal ideas, no homicidal ideas, no aggressive thoughts, no endangering behavior and no debilitating adverse effects. The patient agreed on the treatment plan, understood the risk, benefit, alternative treatment, potential consequence of no treatment, and gave informed consent. Progress Note: 05/19/2021: The patient was seen today, he has a lot of somatic complaints, some appear to be delusions. He says his arm is paralyzed and he can't move it. But the patient is moving his arm about. He says his arm is numb and tingling. He says he's dizzy, has a headache and hallucinating. When I ask the patient what where the hallucinations, he says "I'm seeing everything." He also endorses suicidal thoughts "at times." The patient says he is sensitive to medications and started having all of these symptoms after being placed on the wellbutrin. I informed the patient that he was no longer on the wellbutrin. 05/20/2021: The patient was seen today, he still has a lot of somatic complaints. He is delusional. He says his right arm is "cold as ice, numb, tingling, paralyzed and he can't move it." The patient's arm is warm to touch, and he has good movement in it. He also says his head is hurting and it is moving down to his right leg. He says "my whole right side is paralyzed." He denies SI/HI or hallucinations of any kind. He says "no, no I need an MRI on my body. Let them know." 05/21/2021: The patient was seen eating breakfast but states he is not doing well. He reports numbness to his right arm and head aches: vital signs was checked and it is within normal limit. He reports getting about three hours of sleep last night. He denies any current suicidal/homicidal and denies hallucinations. Per nurse " Last evening the patient spent in the activity room with peers. He has little interaction with others. He is focused on somatic issues. He denies si/hi/ah/vh. His appetite is good and he is medication compliant. Overnight the patient rested quietly. He slept 8 hours. Will continue to monitor patient for safety." No changes made today. 05/22/2021: The patient was seen in the activity room awaiting breakfast. He continues to have somatic complains. He reports sleep as poor and appetite as good. The patient denies any current suicidal/ homicidal ideation and denies hallucinations. Per nurse "overnight the pt rested quietly, presents as sleeping for approximately 9hrs, no distress noted, will continue to monitor for safety. " No changes made today. 05/23/2021: The patient reports feeling better, he his focused on discharge. He reports sleep and appetite as good. The patient denies any current suicidal/ homicidal ideation and denies hallucinations. No changes made today. Disposition: 01 HOME / SELF CARE / HOMELESS Allergies/Adverse Reactions: Allergies No Known Allergies Allergy (Verified 05/18/21 01:51) Vital Signs: Last Vital Signs Temp 97.5 F L 05/23/21 19:18 Pulse 71 05/23/21 19:18 Resp 16 05/23/21 19:18 BP 154/79 05/23/21 19:18 Pulse Ox 97 05/23/21 19:18 Last Lab: Laboratory Last Values WBC 8.8 K/mm3 (4.5-11.0) 05/18/21 12:31 RBC 4.26 M/mm3 (3.65-5.03) 05/18/21 12:31 Hgb 15.1 gm/dl (11.8-15.2) 05/18/21 12:31 Hct 42.3 % (35.5-45.6) 05/18/21 12:31 MCV 99 fl (84-94) H 05/18/21 12:31 MCH 35 pg (28-32) H 05/18/21 12:31 MCHC 36 % (32-34) H 05/18/21 12:31 RDW 14.3 % (13.2-15.2) 05/18/21 12:31 Plt Count 277 K/mm3 (140-440) 05/18/21 12:31 Lymph % (Auto) 9.2 % (13.4-35.0) L 05/18/21 12:31 [place] % (Auto) 10.0 % (0.0-7.3) H 05/18/21 12:31 Eos % (Auto) 0.8 % (0.0-4.3) 05/18/21 12:31 Baso % (Auto) 0.6 % (0.0-1.8) 05/18/21 12:31 Lymph # (Auto) 0.8 K/mm3 (1.2-5.4) L 05/18/21 12:31 [place] # (Auto) 0.9 K/mm3 (0.0-0.8) H 05/18/21 12:31 Eos # (Auto) 0.1 K/mm3 (0.0-0.4) 05/18/21 12:31 Baso # (Auto) 0.1 K/mm3 (0.0-0.1) 05/18/21 12:31 Seg Neutrophils % 79.4 % (40.0-70.0) H 05/18/21 12:31 Seg Neutrophils # 7.0 K/mm3 (1.8-7.7) 05/18/21 12:31 Sodium 135 mmol/L (137-145) L 05/18/21 12:31 Potassium 4.1 mmol/L (3.6-5.0) 05/18/21 12:31 Chloride 99.6 mmol/L (98-107) 05/18/21 12:31 Carbon Dioxide 22 mmol/L (22-30) 05/18/21 12:31 Anion Gap 18 mmol/L 05/18/21 12:31 BUN 21 mg/dL (9-20) H 05/18/21 12:31 Creatinine 1.2 mg/dL (0.8-1.3) 05/18/21 12:31 Estimated GFR 59 ml/min 05/18/21 12:31 BUN/Creatinine Ratio 18 % 05/18/21 12:31 Glucose 80 mg/dL (75-100) 05/18/21 12:31 POC Glucose 95 mg/dL (70-105) 05/18/21 19:53 Hemoglobin A1c 5.4 % (4-6) 05/18/21 12:31 Calcium 9.9 mg/dL (8.4-10.2) 05/18/21 12:31 Total Bilirubin 0.60 mg/dL (0.1-1.2) 05/18/21 12:31 AST 22 units/L (5-40) 05/18/21 12:31 ALT 13 units/L (7-56) 05/18/21 12:31 Alkaline Phosphatase 56 units/L (35-129) 05/18/21 12:31 Total Protein 7.0 g/dL (6.3-8.2) 05/18/21 12:31 Albumin 4.4 g/dL (3.9-5) 05/18/21 12:31 Albumin/Globulin Ratio 1.7 % 05/18/21 12:31 Triglycerides 105 mg/dL (2-149) 05/18/21 12:31 Cholesterol 111 mg/dL (50-199) 05/18/21 12:31 LDL Cholesterol Direct 62 mg/dL (50-130) 05/18/21 12:31 HDL Cholesterol 43 mg/dL (40-59) 05/18/21 12:31 Cholesterol/HDL Ratio 2.58 % 05/18/21 12:31 TSH 1.000 mlU/mL (0.270-4.200) 05/18/21 12:31 Core Measure Documentation - Palliative Care Palliative Care/ Comfort Measures: Not Applicable - Core Measures Any of the following diagnoses?: none - VTE Discharge Requirements Has pt received <5 days of overlap therapy or INR<2.0: No (criteria for overlap therapy at discharge: on overlap therapy for less than 5 days or INR<2.0) Anticoagulant overlap therapy prescribed at discharge: No Contraindication No Overlap Therapy order at DC: Not Indicated - Acute [facility] Discharge Requirements Reason for no aspirin on DC: Allergy or sensitivity GUERA/ARB for LVSD if EF <40%: Not Applicable Statin for LDL = or >100 mg/dl on DC: Not Applicable - Heart Failure Discharge Requirements GUERA/ARB for LVSD if EF <40%: No Beta mark at discharge: No - Stroke Discharge Requirements Statin for LDL = or >70 mg/dl on DC: Not Applicable Reason for no statin on DC: Not Indicated Anticoag for atrial fib/atrial flutter: Not Applicable Reason for no anticoag for AF/F on DC: Not Indicated Antithrombotic for ischemic stroke: No Reason for no antithrombotic on DC: Not Indicated Exam - Constitutional Vitals: Temp Pulse Resp BP Pulse Ox 97.5 F L 71 16 154/79 97 05/23/21 19:18 05/23/21 19:18 05/23/21 19:18 05/23/21 19:18 05/23/21 19:18 General appearance: Present: no acute distress - Psychiatric Psychiatric: appropriate mood/affect Plan Activity: advance as tolerated Weight Bearing Status: Weight Bear as Tolerated Diet: regular Durable Medical Equipment Needed Upon Discharge: Wheelchair Care Plan Goals: Maintain good and stable mental health. Plan of Treatment: The patient should be compliant with medications, not to use drugs and not to drink alcohol. The patient understands that if suicidal ideas, homicidal ideas, or any endangering thoughts arise, the patient should immediately seek for emergent assistance including but not limited to crisis hot line and emergency room. Follow up with outpatient Psychiatrist and PCP within 7 - 14 days of discharge. Follow up with: PRIMARY CARE,MD [Primary Care Provider] - 7 Days Prescriptions: Melatonin [Melatonin 5MG TAB] 5 mg PO QHS PRN 30 Days #30 tablet PRN Reason: Sleep ARIPiprazole 5 mg PO QDAY 30 Days #30 tablet Venlafaxine [Effexor 37.5mg tab] 37.5 mg PO BID 30 Days #60 tablet Pending Studies .. <OK CASTILLO - Last Filed: 06/29/21 07:31> Providers - Providers Date of Admission: 05/17/21 23:00 Attending physician: OK CASTILLO MD 05/17/21 18:26 Consult to Physician [CONS] Routine Comment: Consulting Provider: TABITHA HIGHTOWER Physician Instructions: Reason For Exam: manage medical conditions 05/18/21 12:27 Physical Therapy Evaluation and Treat [CONS] Routine Comment: Reason For Exam: Unsteady gait 05/18/21 12:29 Occupational Therapy Evaluate and Treat [CONS] Routine Comment: Reason For Exam: Difficulty in swallow Primary care physician: WELDER/INSTALLER Hospitalization Vital Signs: Last Vital Signs Temp 98.2 F 05/24/21 08:55 Pulse 107 H 05/24/21 08:55 Resp 18 05/24/21 10:22 BP 103/60 05/24/21 08:55 Pulse Ox 97 05/24/21 08:55 Last Lab: Laboratory Last Values WBC 8.8 K/mm3 (4.5-11.0) 05/18/21 12:31 RBC 4.26 M/mm3 (3.65-5.03) 05/18/21 12:31 Hgb 15.1 gm/dl (11.8-15.2) 05/18/21 12:31 Hct 42.3 % (35.5-45.6) 05/18/21 12:31 MCV 99 fl (84-94) H 05/18/21 12:31 MCH 35 pg (28-32) H 05/18/21 12:31 MCHC 36 % (32-34) H 05/18/21 12:31 RDW 14.3 % (13.2-15.2) 05/18/21 12:31 Plt Count 277 K/mm3 (140-440) 05/18/21 12:31 Lymph % (Auto) 9.2 % (13.4-35.0) L 05/18/21 12:31 [place] % (Auto) 10.0 % (0.0-7.3) H 05/18/21 12:31 Eos % (Auto) 0.8 % (0.0-4.3) 05/18/21 12:31 Baso % (Auto) 0.6 % (0.0-1.8) 05/18/21 12:31 Lymph # (Auto) 0.8 K/mm3 (1.2-5.4) L 05/18/21 12:31 [place] # (Auto) 0.9 K/mm3 (0.0-0.8) H 05/18/21 12:31 Eos # (Auto) 0.1 K/mm3 (0.0-0.4) 05/18/21 12:31 Baso # (Auto) 0.1 K/mm3 (0.0-0.1) 05/18/21 12:31 Seg Neutrophils % 79.4 % (40.0-70.0) H 05/18/21 12:31 Seg Neutrophils # 7.0 K/mm3 (1.8-7.7) 05/18/21 12:31 Sodium 135 mmol/L (137-145) L 05/18/21 12:31 Potassium 4.1 mmol/L (3.6-5.0) 05/18/21 12:31 Chloride 99.6 mmol/L (98-107) 05/18/21 12:31 Carbon Dioxide 22 mmol/L (22-30) 05/18/21 12:31 Anion Gap 18 mmol/L 05/18/21 12:31 BUN 21 mg/dL (9-20) H 05/18/21 12:31 Creatinine 1.2 mg/dL (0.8-1.3) 05/18/21 12:31 Estimated GFR 59 ml/min 05/18/21 12:31 BUN/Creatinine Ratio 18 % 05/18/21 12:31 Glucose 80 mg/dL (75-100) 05/18/21 12:31 POC Glucose 95 mg/dL (70-105) 05/18/21 19:53 Hemoglobin A1c 5.4 % (4-6) 05/18/21 12:31 Calcium 9.9 mg/dL (8.4-10.2) 05/18/21 12:31 Total Bilirubin 0.60 mg/dL (0.1-1.2) 05/18/21 12:31 AST 22 units/L (5-40) 05/18/21 12:31 ALT 13 units/L (7-56) 05/18/21 12:31 Alkaline Phosphatase 56 units/L (35-129) 05/18/21 12:31 Total Protein 7.0 g/dL (6.3-8.2) 05/18/21 12:31 Albumin 4.4 g/dL (3.9-5) 05/18/21 12:31 Albumin/Globulin Ratio 1.7 % 05/18/21 12:31 Triglycerides 105 mg/dL (2-149) 05/18/21 12:31 Cholesterol 111 mg/dL (50-199) 05/18/21 12:31 LDL Cholesterol Direct 62 mg/dL (50-130) 05/18/21 12:31 HDL Cholesterol 43 mg/dL (40-59) 05/18/21 12:31 Cholesterol/HDL Ratio 2.58 % 05/18/21 12:31 TSH 1.000 mlU/mL (0.270-4.200) 05/18/21 12:31 Exam - Constitutional Vitals: Temp Pulse Resp BP Pulse Ox 98.2 F 107 H 18 103/60 97 05/24/21 08:55 05/24/21 08:55 05/24/21 10:22 05/24/21 08:55 05/24/21 08:55
[2021-05-24] MEDS: ARIPiprazole 5 MG TAB PO SCH (09:30)
[2021-05-24] MEDS: VENLAFAXINE 37.5 MG TAB PO SCH (09:31)
[2021-05-24] MEDS: FINASTERIDE 5 MG TAB PO SCH (09:31)
[2021-05-24] MEDS: BUTALB/ACETAMINOPHEN/CAFFEINE TAB PO PRN (10:22)
[2021-05-24 12:39] VITALS: BP 103/60
== END 2021-05-24 13:07 | disposition home or self-care (01) | DRG 885 ==
LOC: UNDOADMIN 16:08 → 3A 16:08 → 5A 23:00
PROVIDERS: ADMIT Psychiatry & Neurology Psychiatry; ATTEND Psychiatry & Neurology Psychiatry
DX: F33.9 Major depressive disorder, recurrent, unspecified (principal); F01.50 Vascular dementia, unspecified severity, without behavioral disturbance, psychotic disturbance, mood disturbance, and anxiety; I67.2 Cerebral atherosclerosis; F41.8 Other specified anxiety disorders; Z79.899 Other long term (current) drug therapy
CPT/HCPCS: 36415; 80053; 80061; 82962; 83036; 84443; 85025; G0378